=== PATIENT | female | born 1945 | race Caucasian/White ===

== ENCOUNTER → 2018-01-19 | Outpatient (CLI) | payer MEDICARE | END | disposition home or self-care (01) | LOC: RAD 12:07 | PROVIDERS: ATTEND Family Medicine | DX: M51.34 Other intervertebral disc degeneration, thoracic region (principal); M48.04 Spinal stenosis, thoracic region; J94.8 Other specified pleural conditions | CPT/HCPCS: 71046; 72072 ==

== ENCOUNTER → 2018-07-16 | Outpatient (CLI) | payer MEDICARE ==
[2018-07-16 08:22] LABS: BASOPHILS # (AUTO) 0.03 x10^3/uL (0-0.1); BASOPHILS % (AUTO) 1 % (0-1); EOSINOPHILS # (AUTO) 0.21 x10^3/uL (0-0.4); EOSINOPHILS % (AUTO) 3 % (1-7); LYMPHOCYTES # (AUTO) 2.12 x10^3/uL (1-3.4); LYMPHOCYTES % (AUTO) 32 % (22-44); MD NO; MEAN CORPUSCULAR HEMOGLOBIN 28.8 pg (27.0-34.8); MEAN CORPUSCULAR VOLUME 87.5 fL (80-100); MEAN PLATELET VOLUME 10.2 fL (7.4-10.4); MONOCYTES # (AUTO) 0.52 x10^3/uL (0.2-0.8); MONOCYTES % (AUTO) 8 % (2-9); NEUTROPHILS # (AUTO) 3.81 x10^3/uL (1.8-6.8); NEUTROPHILS % (AUTO) 57 % (42-75); PLATELET COUNT 275 x10^3/uL (130-400); RED BLOOD COUNT 4.37 x10^6/uL (3.82-5.3); RED CELL DISTRIBUTION WIDTH 15.4 % (9.6-15.2)
[2018-07-16 08:27] LABS: INTERNATIONAL NORMALIZED RATIO 0.95 (0.93-1.1); PROTHROMBIN TIME 9.9 Seconds (9.6-11.5)
[2018-07-16 08:28] LABS: ALANINE AMINOTRANSFERASE 32 U/L (12-78); ALBUMIN 3.9 g/dL (3.4-5.0); ANION GAP 6 mmol/L (5-15); CHLORIDE 108 mmol/L (98-107)
[2018-07-16 08:31] LABS: ALKALINE PHOSPHATASE 62 U/L (45-117); BILIRUBIN,TOTAL 0.3 mg/dL (0.2-1.0); CREATININE 1.16 mg/dL (0.55-1.02); TOTAL PROTEIN 7.3 g/dL (6.4-8.2)
== END | disposition home or self-care (01) ==
LOC: LAB 07:52
PROVIDERS: ATTEND Internal Medicine Hematology & Oncology
DX: D68.1 Hereditary factor XI deficiency (principal); Z87.19 Personal history of other diseases of the digestive system
CPT/HCPCS: 36415; 80053; 85025; 85270; 85610; 85730

== ENCOUNTER → 2020-02-18 | Outpatient (CLI) | payer MEDICARE | END | disposition home or self-care (01) | LOC: CFH 10:38 | PROVIDERS: ATTEND Radiology Radiation Oncology | DX: Z12.31 Encounter for screening mammogram for malignant neoplasm of breast (principal) | CPT/HCPCS: 77063; 77067 ==

== ENCOUNTER → 2020-03-17 | Outpatient (CLI) | payer MEDICARE | END | disposition home or self-care (01) | LOC: CFH 07:04 | PROVIDERS: ATTEND Orthopaedic Surgery | DX: I08.0 Rheumatic disorders of both mitral and aortic valves (principal); I42.9 Cardiomyopathy, unspecified; I12.9 Hypertensive chronic kidney disease with stage 1 through stage 4 chronic kidney disease, or unspecified chronic kidney disease; N18.9 Chronic kidney disease, unspecified; E78.2 Mixed hyperlipidemia; R73.9 Hyperglycemia, unspecified | CPT/HCPCS: 71046; 93306 ==

== ENCOUNTER 2020-06-05 08:10 | Outpatient (CLI) | payer MEDICARE ==
[~2020-06-05 08:10] MED LIST: REGADENOSON 0.4 MG/5 ML SYRINGE ONE
== END 2020-06-05 23:59 | disposition home or self-care (01) ==
LOC: CFH 08:10
PROVIDERS: ATTEND Nurse Practitioner Family
DX: I25.9 Chronic ischemic heart disease, unspecified (principal); I21.19 ST elevation (STEMI) myocardial infarction involving other coronary artery of inferior wall; R06.02 Shortness of breath; I10 Essential (primary) hypertension; I42.9 Cardiomyopathy, unspecified
CPT/HCPCS: 78452; 93017; A9502; J2785

== ENCOUNTER → 2020-06-14 | Outpatient (CLI) | payer MEDICARE ==
[~2020-06-14] MED LIST changes: +CARV6.2512 PO; +DIAZ5TAB PO; +DULO30CA2 PO; +FURO-93 PO; +LEVO75TA PO; +LOSA25TA25 PO; -REGADENOSON 0.4 MG/5 ML SYRINGE ONE; +ROSU20TA2 PO; +SPIR50TA4 PO; +TOLT2CAP22 PO
[2020-06-14 11:06] LABS: ANION GAP 9 mmol/L (5-15); CALCIUM 9.2 mg/dL (8.5-10.1); CHLORIDE 103 mmol/L (98-107); CREATININE 1.49 mg/dL (0.55-1.02)
== END | disposition home or self-care (01) ==
LOC: LAB 10:38
PROVIDERS: ATTEND Nurse Practitioner Family
DX: I12.9 Hypertensive chronic kidney disease with stage 1 through stage 4 chronic kidney disease, or unspecified chronic kidney disease (principal); E78.2 Mixed hyperlipidemia; R00.2 Palpitations; I42.9 Cardiomyopathy, unspecified; R00.1 Bradycardia, unspecified; R06.02 Shortness of breath; R73.9 Hyperglycemia, unspecified; N18.9 Chronic kidney disease, unspecified
CPT/HCPCS: 36415; 80048; 83880

== ENCOUNTER → 2020-06-16 | Outpatient (CLI) | payer MEDICARE | END | disposition home or self-care (01) | LOC: CVU 06:57 | PROVIDERS: ATTEND Nurse Practitioner Family | DX: I65.23 Occlusion and stenosis of bilateral carotid arteries (principal); R09.89 Other specified symptoms and signs involving the circulatory and respiratory systems | CPT/HCPCS: 93880 ==

== ENCOUNTER 2020-07-13 14:10 | Emergency (ER) | payer MEDICARE ==
[~2020-07-13] VITALS: Ht 154.9 cm; Wt 84.2 kg
[~2020-07-13 14:10] MED LIST changes: +LOSA100T2 PO; +SPIR25TA PO
--- NOTE | 2020-07-13 14:20 | NUR ---
EKG DONE IN TRIAGE
[2020-07-13 14:51] LABS: BASOPHILS % (AUTO) 1 % (0-1); EOSINOPHILS % (AUTO) 3 % (1-7); LYMPHOCYTES % (AUTO) 17 % (22-44); MEAN CORPUSCULAR HEMOGLOBIN 25.3 pg (27.0-34.8); MEAN CORPUSCULAR HGB CONC 31.6 g/dL (32.4-35.8); MEAN PLATELET VOLUME 8.9 fL (7.4-10.4); MONOCYTES % (AUTO) 10 % (2-9); NEUTROPHILS % (AUTO) 71 % (42-75); PLATELET COUNT 459 x10^3/uL (130-400); RED BLOOD COUNT 3.27 x10^6/uL (3.82-5.3); RED CELL DISTRIBUTION WIDTH 22.2 % (9.6-15.2)
[2020-07-13 15:03] LABS: ALANINE AMINOTRANSFERASE 21 U/L (12-78); ALBUMIN 3.8 g/dL (3.4-5.0); ANION GAP 9 mmol/L (5-15); CHLORIDE 106 mmol/L (98-107); CREATININE 1.28 mg/dL (0.55-1.02)
[2020-07-13 15:05] LABS: ALKALINE PHOSPHATASE 72 U/L (45-117); BILIRUBIN,TOTAL 0.4 mg/dL (0.2-1.0); TOTAL PROTEIN 7.5 g/dL (6.4-8.2)
[2020-07-13 15:56] LABS: MD NO
--- NOTE | 2020-07-13 17:13 | NUR ---
PT TO ROOM FROM LOBBY
--- NOTE | 2020-07-13 17:16 | NUR ---
DR SALDIVAR AT BEDSIDE TO PIETER PT. CONTACT WITH PT, 74 YR OLD FEMALE HERE WITH C/O "I'M BLEEDING, THEY HAVE SCOPED ME UP AND DOWN (DR ABARCA) AROUND THE June. I HAD A CBC ON FRIDAY. THIS MORNING IT WENT DOWN (HGB). I HAVE AVMS"
--- NOTE | 2020-07-13 18:39 | NUR ---
PT SITTING UP ON GURNEY, NO ACUTE DISTRESS NOTED. SR PER MONITOR, AUTO BP AND PULSE OX. PT WITH C/O "BEING COLD" PT PROVIDED WITH MINGO PAWS WARMER. NO OTHER NEEDS EXPRESSED AT THIS TIME. WAITING FOR FURTHER DISPOSITION.
--- NOTE | 2020-07-13 18:55 | NUR ---
BS REPORT TO MARIUSZ IQBAL.
--- NOTE | 2020-07-13 18:55 | NUR ---
BEDSIDE REPORT FROM CHEPE IQBAL, PT CARE TRANSFERRED AT THIS TIME.
[2020-07-13] MEDS ORDERED: PANT40TA6 PO (19:00)
[2020-07-13] MEDS ORDERED: TOLT4CAP12 PO (19:00)
[2020-07-13] MEDS ORDERED: DOCU240C53 PO (19:00)
[2020-07-13] MEDS ORDERED: OMEP-110 PO (19:00)
[2020-07-13] MEDS ORDERED: ROSU40TA PO (19:00)
[2020-07-13] MEDS ORDERED: VERA180C2 PO (19:00)
--- NOTE | 2020-07-13 20:16 | NUR ---
PT PROVIDED MEAL PER REQUEST, CONSENT OBTAINED, PT AMBULATED TO AND FROM RESTROOM WITH A SMOOTH AND STEADY GAIT, NAD, RESTING ON GURNEY, PT IS PALE, VSS, DENIES DIZZINESS AT THIS TIME, WAITING FOR BLOOD, WCTM.
[2020-07-13 20:43] VITALS: BP 119/46
--- NOTE | 2020-07-13 20:48 | NUR ---
BLOOD STARTED, VERIFIED WITH JENNY IQBAL
[2020-07-13 21:01] VITALS: BP 138/52
[2020-07-13 21:18] VITALS: BP 132/48
--- NOTE | 2020-07-13 21:29 | NUR ---
pt resting on gurney, lung auscultation unchanged from initial exam, pt nad, denies additional needs, wctm. waiting for transfusion then dc.
[2020-07-13 21:54] VITALS: BP 125/46
[2020-07-13 22:12] VITALS: BP 132/49
--- NOTE | 2020-07-13 22:32 | NUR ---
Patient given discharge instructions and they have confirmed that they understand the instructions. Patient ambulatory with steady gait. NAD, VSS, PROVIDED INFORMATIONAL SHEET FOR BLOOD TRASNFUSIONS, RN REVIEWED WITH PT. PT DENIES ADDITIONAL NEEDS, ALL QUESTIONS ANSWERED APPROPRIATELY. NO PERSONAL BELONGINGS LEFT IN ROOM AT NE.
== END 2020-07-13 22:33 | disposition home or self-care (01) ==
LOC: ED 18:51
DX: K92.1 Melena (principal); D62 Acute posthemorrhagic anemia; K59.00 Constipation, unspecified; R19.7 Diarrhea, unspecified; I25.2 Old myocardial infarction; I10 Essential (primary) hypertension; I48.91 Unspecified atrial fibrillation
CPT/HCPCS: 36415; 36430; 80053; 82728; 83540; 83550; 85025; 86850; 86900; 86923; 93005; 99285; P9016

== ENCOUNTER 2020-08-10 14:05 | Inpatient (IN) | payer MEDICARE ==
[~2020-08-10] VITALS: Ht 147.3 cm; Wt 86.6 kg
[~2020-08-10 14:05] MED LIST changes: +DOCU240C53 PO; +OMEP-110 PO; +PANT40TA6 PO; +ROSU40TA PO; +TOLT4CAP12 PO; +VERA180C2 PO
[2020-08-10] MEDS ORDERED: PANTOPRAZOLE 40 MG IV ONE (14:58)
[2020-08-10] MEDS ORDERED: SODIUM CHLORIDE FLUSH 10ML SYR IVF ONE (15:00)
[2020-08-10] MEDS ORDERED: PANTOPRAZOLE 80 MG in SODIUM CHLORIDE 0.9% 100 ML IV SCH (15:00)
[2020-08-10] MEDS ORDERED: PANTOPRAZOLE 40 MG IV IVPush ONE (15:00)
--- NOTE | 2020-08-10 15:08 | NUR ---
PT HAS CO GI BLEED W DARK STOOL. HX OF GI BLEEDS AND TRANSFUSIONG. PT PALE IN COLOR. STATES SHE HAS BEEN SCOPED, SOURCE OF BLEEING IS UNKNOWN. DENIES BLOOD IN EMESIS. DENIES SOB, DIZZINESS. FISHER LAMPARA NET IN PLACE PIV, MEDICATED PER ORDERS.
[2020-08-10 15:46] LABS: BASOPHILS % (AUTO) 1 % (0-1); EOSINOPHILS % (AUTO) 2 % (1-7); LYMPHOCYTES % (AUTO) 17 % (22-44); MEAN CORPUSCULAR HEMOGLOBIN 27.4 pg (27.0-34.8); MEAN PLATELET VOLUME 10.3 fL (7.4-10.4); MONOCYTES % (AUTO) 7 % (2-9); NEUTROPHILS % (AUTO) 72 % (42-75); PLATELET COUNT 267 x10^3/uL (130-400); RED BLOOD COUNT 2.95 x10^6/uL (3.82-5.3); RED CELL DISTRIBUTION WIDTH 26.8 % (9.6-15.2)
[2020-08-10 15:50] LABS: ALANINE AMINOTRANSFERASE 31 U/L (12-78); ALBUMIN 3.9 g/dL (3.4-5.0); ANION GAP 8 mmol/L (5-15); CALCIUM 9.1 mg/dL (8.5-10.1); CHLORIDE 105 mmol/L (98-107); CREATININE 1.39 mg/dL (0.55-1.02)
[2020-08-10 15:52] LABS: ALKALINE PHOSPHATASE 59 U/L (45-117); BILIRUBIN,TOTAL 0.2 mg/dL (0.2-1.0); TOTAL PROTEIN 7.3 g/dL (6.4-8.2)
[2020-08-10 16:15] LABS: INTERNATIONAL NORMALIZED RATIO 0.94 (0.93-1.1)
--- NOTE | 2020-08-10 16:36 | NUR ---
PT RESTING, VSS.
--- NOTE | 2020-08-10 16:59 | NUR ---
ASSISTED PT TO BATHROOM. STEADY GATE.
[2020-08-10 17:03] LABS: MD MORPH REVIEW ONLY
[2020-08-10 17:04] LABS: ANISOCYTOSIS 2+; HYPOCHROMIA 1+; MICROCYTOSIS 1+; POLYCHROMASIA 1+
[2020-08-10 17:05] LABS: <PLATELET ESTIMATE> ADEQUATE; LARGE PLATELETS 1+; OVALOCYTES 1+
--- NOTE | 2020-08-10 17:49 | NUR ---
MD REYNOLDS AT BEDSIDE DISCUSSING POC
[2020-08-10] MEDS ORDERED: DIAZEPAM 5 MG TABLET PO ONE (18:00)
[2020-08-10] MEDS ORDERED: DIAZEPAM 5 MG TABLET ONE (18:03)
[2020-08-10] MEDS ORDERED: SODIUM CHLORIDE FLUSH 10ML SYR IVF PRN (18:30)
[2020-08-10] MEDS ORDERED: [UNRECOGNIZED DRUG - REMARK] MC SCH (18:30)
[2020-08-10 18:33] VITALS: BP 115/39
--- NOTE | 2020-08-10 18:35 | NUR ---
BLOOD STARTED. PT TOLERATING WELL
[2020-08-10 18:48] VITALS: BP 140/42
--- NOTE | 2020-08-10 18:49 | NUR ---
report to olga
[2020-08-10] MEDS ORDERED: hydrALAzine 20 MG/ML, 1ML IVPush PRN (19:00)
[2020-08-10] MEDS ORDERED: ONDANSETRON ODT 4 MG PO PRN (19:00)
[2020-08-10] MEDS ORDERED: PROMETHAZINE 25 MG/ML, 1ML IM PRN (19:00)
[2020-08-10] MEDS ORDERED: DOCUSATE 100 MG CAPSULE PO PRN (19:00)
[2020-08-10] MEDS ORDERED: ACETAMINOPHEN 325 MG TABLET PO PRN (19:00)
[2020-08-10] MEDS ORDERED: ONDANSETRON 2MG/ML, 2ML IVPush PRN (19:00)
[2020-08-10] MEDS ORDERED: OCCUVITE (19:02)
[2020-08-10] MEDS ORDERED: [UNRECOGNIZED DRUG - OTHER] (19:02)
[2020-08-10] MEDS ORDERED: multivitamin (19:02)
[2020-08-10] MEDS ORDERED: vit b6 (19:02)
--- NOTE | 2020-08-10 19:03 | NUR ---
REPORT FROM FARIDA CORDOVA. FIRST CONTACT WITH PT. PT SPEAKS VERY FULL SENTENCES, VSS, HR NSR, NO ECTOPY, BLOOD TX WITHOUT RXN. WAITING FOR MED/SURG BED TELE. MED REC UPDATED.
[2020-08-10 19:12] LABS: FREE T4 (FREE THYROXINE) 0.95 ng/dL (0.76-1.46)
--- NOTE | 2020-08-10 19:33 | NUR ---
PER HOSPITALIST ORDER OK TO EAT REGULAR DIET. TUNA SANDWHICH AND CHIPS FROM CAFE.
[2020-08-10 19:50] VITALS: BP 151/60
--- NOTE | 2020-08-10 19:57 | NUR ---
BLOOD TX FINISHED, VSS. PT EATING MEAL WILL BE NPO AFTER MIDNIGHT FOR CAPSULE ENDO. PT HAS HAD 4 ENDO AND PUSH ENDO, CAPSULE ENDO WITH PAST FEW MONTHS. SHE REPORTS THEY HAVENT FOUND ANYTHING. VSS. NO TX RXN.
--- NOTE | 2020-08-10 21:39 | NUR ---
PT ATE 100% OF HER SANDWHICH, CHIPS X3 CUPS WATER. VSS. WAITING FOR TELE OVERFLOW BED. WILL BE NPO AFTER MIDNIGHT.
--- NOTE | 2020-08-10 23:16 | NUR ---
PT UP AMBULATORY WALKS TO BATHROOM, STEADY GAIT. VSS. WAITING FOR TRANSPORT TO TELE, ALL BELONGINGS AND TRANSPORT MONITOR ON BED.
[2020-08-11 00:21] VITALS: BP 103/68
[2020-08-11] MEDS: ATORVASTATIN 80 MG TABLET PO SCH ×2 (00:43→20:30)
[2020-08-11] MEDS: DIAZEPAM 5 MG TABLET PO SCH ×3 (00:43→20:29)
[2020-08-11] MEDS: D5%-0.45% NACL 1,000 ML IV SCH ×2 (00:58→11:55)
[2020-08-11] MEDS: PANTOPRAZOLE 80 MG in SODIUM CHLORIDE 0.9% 100 ML IV SCH ×2 (02:41→11:55)
[2020-08-11 06:11] LABS: CHLORIDE 108 mmol/L (98-107)
[2020-08-11 06:26] LABS: ALANINE AMINOTRANSFERASE 27 U/L (12-78); ALBUMIN 3.4 g/dL (3.4-5.0); ALKALINE PHOSPHATASE 58 U/L (45-117); ANION GAP 7 mmol/L (5-15); BILIRUBIN,TOTAL 0.4 mg/dL (0.2-1.0); CALCIUM 8.6 mg/dL (8.5-10.1); CHOLESTEROL, TOTAL 172 mg/dL (140-239); CREATININE 1.24 mg/dL (0.55-1.02); HDL CHOL % 33 % (28-40); HDL CHOLESTEROL (DIRECT) 57 mg/dL (40-60); LDL CHOLESTEROL,CALCULATED 88 mg/dL (54-169); LDL/HDL RATIO 1.5 (0.5-3.0); TOTAL PROTEIN 6.4 g/dL (6.4-8.2); TRIGLYCERIDES 135 mg/dL (50-200); VLDL CHOLESTEROL 27 mg/dL (0-25)
[2020-08-11 07:18] VITALS: BP 153/82
[2020-08-11] MEDS ORDERED: PANTOPRAZOLE 40MG TABLET PO SCH (07:30)
[2020-08-11] MEDS: FERROUS GLUCONATE 324 MG TABLET PO SCH ×3 (08:00→17:26)
[2020-08-11] MEDS: DULOXETINE 30 MG CAPSULE.DR PO SCH (09:00)
[2020-08-11] MEDS ORDERED: VERAPAMIL 180 MG CAP. ER PO SCH ×2 (09:00→17:00)
[2020-08-11] MEDS: LEVOTHYROXINE 75 MCG TABLET PO SCH (09:00)
[2020-08-11] MEDS: TOLTERODINE LA 4MG CAP.ER.24H PO SCH (09:00)
[2020-08-11] MEDS ORDERED: CHLORHEXIDINE 15 ML UDC MM STA (13:48)
[2020-08-11 14:03] VITALS: BP 149/78
[2020-08-11] MEDS ORDERED: PANTOPRAZOLE 80 MG in SODIUM CHLORIDE 0.9% 100 ML IV SCH (15:00)
[2020-08-11] MEDS ORDERED: FENTANYL PF 100 MCG/2ML ONE (15:01)
[2020-08-11] MEDS ORDERED: PROPOFOL 50 ML ONE (15:01)
[2020-08-11] MEDS ORDERED: ACETAMINOPHEN 325 MG TABLET PO PRN (16:00)
[2020-08-11] MEDS ORDERED: HYDROmorphone 1 MG/ML, 1ML INJ IVPush PRN (16:00)
[2020-08-11] MEDS ORDERED: FENTANYL PF 100 MCG/2ML IV PRN (16:00)
[2020-08-11] MEDS ORDERED: METHOCARBAMOL 1,000 MG in DEXTROSE 5% 100 ML IV PRN (16:00)
[2020-08-11] MEDS ORDERED: OXYcodone 5 MG/5 ML ORAL.SOL UDC PO PRN (16:00)
[2020-08-11] MEDS ORDERED: ONDANSETRON 2MG/ML, 2ML IVPush PRN (16:00)
[2020-08-11 19:40] VITALS: BP 184/76
[2020-08-11] MEDS: PANTOPRAZOLE 40MG TABLET PO SCH (20:30)
[2020-08-12 00:28] VITALS: BP 143/66
[2020-08-12 05:47] LABS: ANION GAP 5 mmol/L (5-15); CALCIUM 8.8 mg/dL (8.5-10.1); CHLORIDE 111 mmol/L (98-107)
[2020-08-12 05:50] LABS: BASOPHILS % (AUTO) 1 % (0-1); CREATININE 1.18 mg/dL (0.55-1.02); EOSINOPHILS % (AUTO) 1 % (1-7); LYMPHOCYTES % (AUTO) 8 % (22-44); MEAN CORPUSCULAR HEMOGLOBIN 27.9 pg (27.0-34.8); MEAN CORPUSCULAR HGB CONC 32.2 g/dL (32.4-35.8); MEAN PLATELET VOLUME 10.3 fL (7.4-10.4); MONOCYTES % (AUTO) 5 % (2-9); NEUTROPHILS % (AUTO) 85 % (42-75); PLATELET COUNT 218 x10^3/uL (130-400); RED BLOOD COUNT 3.31 x10^6/uL (3.82-5.3); RED CELL DISTRIBUTION WIDTH 23.8 % (9.6-15.2)
[2020-08-12 05:57] LABS: MD NO
[2020-08-12] MEDS: LEVOTHYROXINE 75 MCG TABLET PO SCH (06:15)
[2020-08-12] MEDS: FERROUS GLUCONATE 324 MG TABLET PO SCH (08:00)
[2020-08-12] MEDS: TOLTERODINE LA 4MG CAP.ER.24H PO SCH (08:06)
[2020-08-12] MEDS: DULOXETINE 30 MG CAPSULE.DR PO SCH (08:06)
[2020-08-12] MEDS: PANTOPRAZOLE 40MG TABLET PO SCH (08:06)
[2020-08-12 08:39] VITALS: BP_SYST 121; BP_SYST 156; BP_DIAS 75; BP_DIAS 84
[2020-08-12] MEDS ORDERED: VERAPAMIL 180 MG CAP. ER PO SCH (09:00)
[2020-08-12] MEDS: DIAZEPAM 5 MG TABLET PO SCH (09:45)
== END 2020-08-12 11:10 | disposition home or self-care (01) | DRG 378 ==
LOC: ED 17:31 → EDIP 18:15 → 5SO 08-11 00:12 → DCLOUNGE 08-12 10:59
PROVIDERS: ADMIT Internal Medicine; ATTEND Internal Medicine
PROC: 30233N1 Transfusion of Nonautologous Red Blood Cells into Peripheral Vein, Percutaneous Approach (ICD-10-PCS; principal; 2020-08-10)
PROC: 0DJ08ZZ Inspection of Upper Intestinal Tract, Via Natural or Artificial Opening Endoscopic (ICD-10-PCS; 2020-08-11)
DX: K92.2 Gastrointestinal hemorrhage, unspecified (principal); I42.1 Obstructive hypertrophic cardiomyopathy; Z20.828 Contact with and (suspected) exposure to other viral communicable diseases; D50.9 Iron deficiency anemia, unspecified; D72.829 Elevated white blood cell count, unspecified; E03.9 Hypothyroidism, unspecified; E78.5 Hyperlipidemia, unspecified; J44.9 Chronic obstructive pulmonary disease, unspecified; I10 Essential (primary) hypertension; I25.2 Old myocardial infarction; Z85.3 Personal history of malignant neoplasm of breast; Z85.43 Personal history of malignant neoplasm of ovary; Z87.19 Personal history of other diseases of the digestive system; Z87.891 Personal history of nicotine dependence; Z90.710 Acquired absence of both cervix and uterus; Z90.49 Acquired absence of other specified parts of digestive tract; Z88.8 Allergy status to other drugs, medicaments and biological substances; Z88.5 Allergy status to narcotic agent; Z87.11 Personal history of peptic ulcer disease; Z79.899 Other long term (current) drug therapy; Z79.01 Long term (current) use of anticoagulants; Z79.891 Long term (current) use of opiate analgesic
CPT/HCPCS: 36415; 80048; 80053; 80061; 83036; 83690; 83735; 84439; 84443; 85014; 85018; 85025; 85610; 85730; 86850; 86900; 86923; 87635; 96374; 99291; G0378; J2704; J3010; C9113; P9016

== ENCOUNTER → 2020-08-24 | Outpatient (CLI) | payer MEDICARE ==
[~2020-08-24] MED LIST changes: +LOSA100T14 PO; +MULT-658 PO; +OCCUVITE; +PYRI100T9 PO; +SENN1TAB67 PO; +SPIR25TA5 PO; +[UNRECOGNIZED DRUG - OTHER]; +multivitamin; +vit b6
[2020-08-24 11:04] LABS: BASOPHILS % (AUTO) 1 % (0-1); EOSINOPHILS % (AUTO) 3 % (1-7); LYMPHOCYTES % (AUTO) 17 % (22-44); MEAN CORPUSCULAR HEMOGLOBIN 28.4 pg (27.0-34.8); MEAN PLATELET VOLUME 9.4 fL (7.4-10.4); MONOCYTES % (AUTO) 7 % (2-9); NEUTROPHILS % (AUTO) 72 % (42-75); PLATELET COUNT 408 x10^3/uL (130-400); RED BLOOD COUNT 3.75 x10^6/uL (3.82-5.3); RED CELL DISTRIBUTION WIDTH 22.4 % (9.6-15.2)
[2020-08-24 11:07] LABS: PROTHROMBIN TIME 10.6 Seconds (9.6-11.5)
[2020-08-24 11:09] LABS: MD NO
[2020-08-24 11:14] LABS: ALANINE AMINOTRANSFERASE 30 U/L (12-78); ALBUMIN 4.2 g/dL (3.4-5.0); ANION GAP 5 mmol/L (5-15); CALCIUM 9.7 mg/dL (8.5-10.1); CHLORIDE 106 mmol/L (98-107); CREATININE 1.45 mg/dL (0.55-1.02)
[2020-08-24 11:16] LABS: ALKALINE PHOSPHATASE 65 U/L (45-117); BILIRUBIN,TOTAL 0.2 mg/dL (0.2-1.0); TOTAL PROTEIN 7.9 g/dL (6.4-8.2)
== END | disposition home or self-care (01) ==
LOC: STAR 09:08
PROVIDERS: ATTEND Internal Medicine Geriatric Medicine
DX: Z01.812 Encounter for preprocedural laboratory examination (principal); Z20.828 Contact with and (suspected) exposure to other viral communicable diseases; K63.3 Ulcer of intestine; R94.31 Abnormal electrocardiogram [ECG] [EKG]
CPT/HCPCS: 80053; 85025; 85610; 85730; 87635; 93005

== ENCOUNTER 2020-08-29 09:18 | Day surgery (SDC) | payer MEDICARE ==
[~2020-08-29] VITALS: Ht 147.3 cm; Wt 84.5 kg
[2020-08-29 09:44] VITALS: BP 163/82
[2020-08-29] MEDS ORDERED: CHLORHEXIDINE 15 ML UDC ONE (09:49)
[2020-08-29] MEDS ORDERED: LACTATED RINGERS 1,000 ML IV SCH (10:00)
[2020-08-29] MEDS ORDERED: CHLORHEXIDINE 15 ML UDC MM ONE (10:00)
[2020-08-29] MEDS ORDERED: FENTANYL PF 100 MCG/2ML ONE (10:04)
[2020-08-29] MEDS ORDERED: MIDAZOLAM 1 MG/ML, 2ML ONE (10:04)
[2020-08-29] MEDS ORDERED: PROPOFOL 10 MG/ML, 20ML ONE (10:10)
[2020-08-29] MEDS ORDERED: SUCCINYLCHOLINE 20 MG/ML, 10ML ONE (10:10)
[2020-08-29] MEDS ORDERED: ROCURONIUM 10 MG/ML,10ML ONE (10:10)
[2020-08-29] MEDS ORDERED: MEPERIDINE/PF 25MG/0.5ML IVPush PRN (10:30)
[2020-08-29] MEDS ORDERED: PROMETHAZINE 25 MG/ML, 1ML IVPush PRN (10:30)
[2020-08-29] MEDS ORDERED: DIAZEPAM 5 MG/ML, 2ML IVPush PRN (10:30)
[2020-08-29] MEDS ORDERED: FENTANYL PF 100 MCG/2ML IV PRN (10:30)
[2020-08-29] MEDS ORDERED: HYDROmorphone 1 MG/ML, 1ML INJ IVPush PRN (10:30)
[2020-08-29] MEDS ORDERED: hydrALAzine 20 MG/ML, 1ML ONE (11:49)
[2020-08-29] MEDS ORDERED: hydrALAzine 20 MG/ML, 1ML IV ONE (12:00)
[2020-08-29] MEDS ORDERED: DIAZEPAM 5 MG/ML, 2ML ONE (13:14)
== END 2020-08-29 15:20 | disposition home or self-care (01) ==
LOC: OUT 09:18
PROVIDERS: ATTEND Internal Medicine Geriatric Medicine
DX: D50.0 Iron deficiency anemia secondary to blood loss (chronic) (principal); I48.91 Unspecified atrial fibrillation; I10 Essential (primary) hypertension; I42.2 Other hypertrophic cardiomyopathy; I25.2 Old myocardial infarction; D68.1 Hereditary factor XI deficiency; Z79.890 Hormone replacement therapy; Z79.899 Other long term (current) drug therapy; Z87.891 Personal history of nicotine dependence; Z88.5 Allergy status to narcotic agent; Z88.8 Allergy status to other drugs, medicaments and biological substances; Z91.041 Radiographic dye allergy status
CPT/HCPCS: 44360; 93005; J0330; J0360; J2250; J2704; J3010; J3360; J7120

== ENCOUNTER → 2020-10-11 | Outpatient (CLI) | payer MEDICARE ==
[2020-10-11 15:59] LABS: BASOPHILS % (AUTO) 1 % (0-1); EOSINOPHILS % (AUTO) 3 % (1-7); LYMPHOCYTES % (AUTO) 19 % (22-44); MEAN CORPUSCULAR HEMOGLOBIN 27.1 pg (27.0-34.8); MEAN CORPUSCULAR HGB CONC 32.5 g/dL (32.4-35.8); MEAN PLATELET VOLUME 9.6 fL (7.4-10.4); MONOCYTES % (AUTO) 10 % (2-9); NEUTROPHILS % (AUTO) 67 % (42-75); PLATELET COUNT 376 x10^3/uL (130-400); RED BLOOD COUNT 3.53 x10^6/uL (3.82-5.3); RED CELL DISTRIBUTION WIDTH 17.5 % (9.6-15.2)
[2020-10-11 16:04] LABS: MD NO
== END | disposition home or self-care (01) ==
LOC: LAB 15:31
PROVIDERS: ATTEND Nurse Practitioner Family
DX: I42.2 Other hypertrophic cardiomyopathy (principal); K92.2 Gastrointestinal hemorrhage, unspecified
CPT/HCPCS: 36415; 85025

== ENCOUNTER 2020-10-22 14:13 | Inpatient (IN) | payer MEDICARE ==
[~2020-10-22] VITALS: Ht 147.3 cm; Wt 89.0 kg
--- NOTE | 2020-10-22 14:31 | NUR ---
vashti Lange: [phone]
--- NOTE | 2020-10-22 14:33 | NUR ---
PATIENT WHEELED BACK FROM TRIAGE WITH CHIEF C/O PADILLA. PATIENT REPORTS SHE HAD PROCEDURE AT [place] AND ON THE WAY BACK TO [place] FRIDAY, AFTER HITTING 1000 FEET ELEVATION PATIENT STARTED EXPERIENCING PADILLA, AND AFTER GETTING HOME SHE WAS HAVING SOB, HOME O2 ON RA WAS 50% PER PATIENT. KONARD GONZALEZ, O2 NOW IS 93% ON RA.
[2020-10-22] MEDS ORDERED: SODIUM CHLORIDE FLUSH 10ML SYR IVF ONE (15:00)
--- NOTE | 2020-10-22 15:01 | NUR ---
X-RAY AT BEDSIDE.
[2020-10-22 15:08] LABS: BASOPHILS % (AUTO) 1 % (0-1); EOSINOPHILS % (AUTO) 3 % (1-7); LYMPHOCYTES % (AUTO) 20 % (22-44); MEAN CORPUSCULAR HEMOGLOBIN 26.9 pg (27.0-34.8); MEAN CORPUSCULAR HGB CONC 32.7 g/dL (32.4-35.8); MEAN PLATELET VOLUME 9.8 fL (7.4-10.4); MONOCYTES % (AUTO) 10 % (2-9); NEUTROPHILS % (AUTO) 67 % (42-75); PLATELET COUNT 320 x10^3/uL (130-400); RED BLOOD COUNT 2.75 x10^6/uL (3.82-5.3); RED CELL DISTRIBUTION WIDTH 17.4 % (9.6-15.2)
[2020-10-22 15:16] LABS: ALANINE AMINOTRANSFERASE 21 U/L (12-78); ALBUMIN 3.8 g/dL (3.4-5.0); ANION GAP 9 mmol/L (5-15); CHLORIDE 108 mmol/L (98-107); CREATININE 1.13 mg/dL (0.55-1.02)
[2020-10-22 15:18] LABS: MD NO
[2020-10-22 15:21] LABS: ALKALINE PHOSPHATASE 72 U/L (45-117); BILIRUBIN,TOTAL 0.3 mg/dL (0.2-1.0); TOTAL PROTEIN 6.8 g/dL (6.4-8.2)
[2020-10-22] MEDS ORDERED: ASPIRIN 81 MG TABLET CHEW ONE (15:41)
[2020-10-22] MEDS: ASPIRIN 81 MG TABLET CHEW PO ONE ×2 (15:46→16:00)
--- NOTE | 2020-10-22 16:03 | NUR ---
ERMD AT BEDSIDE FOR EVALUATION.
--- NOTE | 2020-10-22 16:45 | NUR ---
ATTEMPT TO CALL REPORT FOR TRANSFER OF PATIENT CARE.
--- NOTE | 2020-10-22 16:49 | NUR ---
SPOKE WITH BLOOD BANK, BLOOD IS STILL BEING PROCESSED, BLOOD IS NOT READY YET.
--- NOTE | 2020-10-22 17:00 | NUR ---
REPORT GIVEN TO FARIDA YUNG FOR TRANSFER OF PATIENT CARE. FLOOR RN AWARE THAT BLOOD TO BE STARTED ON THE FLOOR, DUE TO BLOOD NOT READY YET.
--- NOTE | 2020-10-22 17:24 | NUR ---
PATIENT TRANSFERRED IN STABLE CONDITION VIA GURNEY TO CARDIAC TELEMETRY FLOOR WITH RECORDS ANALYSIS MANAGER. BLOOD CONSENT SENT UP WITH PATIENT, ALONG WITH ALL OF PATIENT BELONGINGS.
[2020-10-22 17:30] VITALS: BP 135/60
[2020-10-22] MEDS ORDERED: TRAZODONE 50MG TABLET PO PRN (18:00)
[2020-10-22] MEDS ORDERED: ONDANSETRON 2MG/ML, 2ML IVPush PRN (18:00)
[2020-10-22] MEDS ORDERED: MELATONIN 5 MG TABLET PO PRN (18:00)
[2020-10-22] MEDS ORDERED: ONDANSETRON ODT 4 MG PO PRN (18:00)
[2020-10-22] MEDS ORDERED: ACETAMINOPHEN 325 MG TABLET PO PRN (18:00)
[2020-10-22] MEDS ORDERED: NICOTINE GUM 2 MG BC PRN (18:00)
[2020-10-22 18:26] VITALS: BP 129/55
[2020-10-22] MEDS ORDERED: PANTOPRAZOLE 80 MG in SODIUM CHLORIDE 0.9% 50 ML IV ONE (18:30)
[2020-10-22] MEDS ORDERED: DIAZEPAM 5 MG/ML, 2ML IV PRN (18:30)
[2020-10-22 18:42] VITALS: BP 134/84
[2020-10-22 18:51] VITALS: BP 134/84
[2020-10-22] MEDS ORDERED: ATORVASTATIN 80 MG TABLET PO SCH (21:00)
[2020-10-22 22:00] VITALS: BP 151/68
[2020-10-22] MEDS: PANTOPRAZOLE 80 MG in SODIUM CHLORIDE 0.9% 100 ML IV SCH (22:39)
[2020-10-23 02:46] VITALS: BP 137/72
[2020-10-23] MEDS: PANTOPRAZOLE 80 MG in SODIUM CHLORIDE 0.9% 100 ML IV SCH ×2 (05:00→14:23)
[2020-10-23] MEDS ORDERED: LEVOTHYROXINE 75 MCG TABLET PO SCH (06:00)
[2020-10-23 06:40] LABS: % IRON SATURATION 81 % (20-55); ANION GAP 7 mmol/L (5-15); CALCIUM 9.1 mg/dL (8.5-10.1); CHLORIDE 107 mmol/L (98-107); CREATININE 1.29 mg/dL (0.55-1.02); IRON LEVEL 316 mcg/dL (50-170); TOTAL IRON BINDING CAPACITY 390 mcg/dL (250-450)
[2020-10-23 07:08] VITALS: BP 141/65
[2020-10-23] MEDS ORDERED: PYRIDOXINE (VITAMIN B6) 100 MG TAB PO SCH (09:00)
[2020-10-23] MEDS ORDERED: SPIRONOLACTONE 25 MG TABLET PO SCH (09:00)
[2020-10-23] MEDS ORDERED: MULTIVITAMIN 1 TABLET PO SCH (09:00)
[2020-10-23] MEDS ORDERED: VERAPAMIL 180 MG CAP. ER PO SCH (09:00)
[2020-10-23] MEDS ORDERED: TOLTERODINE LA 4MG CAP.ER.24H PO SCH (09:00)
[2020-10-23] MEDS ORDERED: FUROSEMIDE 20 MG TABLET PO SCH (09:00)
[2020-10-23] MEDS ORDERED: DULOXETINE 30 MG CAPSULE.DR PO SCH (09:00)
[2020-10-23 12:18] VITALS: BP 106/68
[2020-10-23 19:35] VITALS: BP 112/66
== END 2020-10-23 19:43 | disposition home or self-care (01) | DRG 811 ==
LOC: SUATTDRO 16:14 → ED 16:38 → EDIP 17:05 → 5SO 17:27
PROVIDERS: ADMIT Internal Medicine; ATTEND Internal Medicine
PROC: 30233N1 Transfusion of Nonautologous Red Blood Cells into Peripheral Vein, Percutaneous Approach (ICD-10-PCS; principal; 2020-10-22)
DX: D64.9 Anemia, unspecified (principal); J96.01 Acute respiratory failure with hypoxia; I21.A1 Myocardial infarction type 2; F13.20 Sedative, hypnotic or anxiolytic dependence, uncomplicated; I42.2 Other hypertrophic cardiomyopathy; Z68.42 Body mass index [BMI] 45.0-49.9, adult; I42.1 Obstructive hypertrophic cardiomyopathy; F17.200 Nicotine dependence, unspecified, uncomplicated; I12.9 Hypertensive chronic kidney disease with stage 1 through stage 4 chronic kidney disease, or unspecified chronic kidney disease; I48.0 Paroxysmal atrial fibrillation; N18.30 Chronic kidney disease, stage 3 unspecified; R73.03 Prediabetes; Z80.3 Family history of malignant neoplasm of breast; Z82.3 Family history of stroke; Z85.3 Personal history of malignant neoplasm of breast; Z85.43 Personal history of malignant neoplasm of ovary; Z87.11 Personal history of peptic ulcer disease; Z90.710 Acquired absence of both cervix and uterus; Z92.3 Personal history of irradiation
CPT/HCPCS: 36415; 71045; 80048; 80053; 83540; 83550; 83880; 84484; 85018; 85025; 85379; 86850; 86900; 86923; 93005; 93306; 99291; G0378; C9113; P9016

== ENCOUNTER 2020-10-30 11:55 | Outpatient (CLI) | payer MEDICARE ==
[2020-10-30 12:17] LABS: BASOPHILS % (AUTO) 1 % (0-1); EOSINOPHILS % (AUTO) 2 % (1-7); LYMPHOCYTES % (AUTO) 18 % (22-44); MEAN CORPUSCULAR HGB CONC 32.6 g/dL (32.4-35.8); MONOCYTES % (AUTO) 7 % (2-9); NEUTROPHILS % (AUTO) 72 % (42-75); PLATELET COUNT 409 x10^3/uL (130-400); RED BLOOD COUNT 3.51 x10^6/uL (3.82-5.3); RED CELL DISTRIBUTION WIDTH 18.2 % (9.6-15.2)
[2020-10-30 12:29] LABS: MD NO
== END 2020-10-30 23:59 | disposition home or self-care (01) ==
LOC: LAB 11:55
PROVIDERS: ATTEND Internal Medicine
DX: I42.2 Other hypertrophic cardiomyopathy (principal); K92.2 Gastrointestinal hemorrhage, unspecified
CPT/HCPCS: 36415; 85025

== ENCOUNTER → 2020-11-06 | Outpatient (CLI) | payer MEDICARE ==
[2020-11-06 08:19] LABS: BASOPHILS % (AUTO) 1 % (0-1); EOSINOPHILS % (AUTO) 3 % (1-7); LYMPHOCYTES % (AUTO) 22 % (22-44); MEAN CORPUSCULAR HEMOGLOBIN 25.3 pg (27.0-34.8); MEAN PLATELET VOLUME 9.3 fL (7.4-10.4); MONOCYTES % (AUTO) 8 % (2-9); NEUTROPHILS % (AUTO) 66 % (42-75); PLATELET COUNT 351 x10^3/uL (130-400); RED CELL DISTRIBUTION WIDTH 18.8 % (9.6-15.2)
[2020-11-06 08:25] LABS: MD NO
== END | disposition home or self-care (01) ==
LOC: LAB 08:00
PROVIDERS: ATTEND Internal Medicine
DX: I42.2 Other hypertrophic cardiomyopathy (principal); K92.2 Gastrointestinal hemorrhage, unspecified
CPT/HCPCS: 36415; 85025

== ENCOUNTER 2020-11-16 17:06 | Inpatient (IN) | payer MEDICARE ==
[~2020-11-16] VITALS: Ht 149.9 cm; Wt 91.0 kg
--- NOTE | 2020-11-16 17:35 | NUR ---
pt cc endoscopy yesterday where they found "a fair amount of blood in the jejunum" pt supposed to be seen tomorrow for procedure. pt is a well known, friendly female who has had a complex history of gi bleeds. pt reports black stools for and extended period of time (since june). pt has had multiple blood transfusions in the past. No blood thinners. Pt recently at [facility] where she had clips placed 10/20/20 but blood levels dropped and pt was seen here two days later. denies pain at this time. pt resting on gurney, nad, bed in lowest, rails engaged, call light on lap, pt provided warm blankets for comfort. ping arvizu md at for eval and poc.
[2020-11-16] MEDS ORDERED: ALBU90AE2 INH (18:00)
[2020-11-16] MEDS ORDERED: LOSA25TA25 PO (18:00)
[2020-11-16] MEDS ORDERED: [UNRECOGNIZED DRUG - REMARK] NAS (18:00)
[2020-11-16] MEDS ORDERED: HYDROCORTISONE CREAM (18:00)
[2020-11-16] MEDS ORDERED: TRAN650T3 PO (18:00)
[2020-11-16] MEDS ORDERED: LUTE1CAP PO (18:00)
[2020-11-16] MEDS ORDERED: POLY17PO5 PO (18:00)
[2020-11-16 18:02] LABS: BASOPHILS % (AUTO) 1 % (0-1); EOSINOPHILS % (AUTO) 2 % (1-7); LYMPHOCYTES % (AUTO) 16 % (22-44); MEAN CORPUSCULAR HEMOGLOBIN 28.7 pg (27.0-34.8); MEAN CORPUSCULAR HGB CONC 33.9 g/dL (32.4-35.8); MEAN PLATELET VOLUME 9.5 fL (7.4-10.4); MONOCYTES % (AUTO) 11 % (2-9); NEUTROPHILS % (AUTO) 69 % (42-75); PLATELET COUNT 316 x10^3/uL (130-400); RED BLOOD COUNT 3.47 x10^6/uL (3.82-5.3); RED CELL DISTRIBUTION WIDTH 19.4 % (9.6-15.2)
[2020-11-16 18:13] LABS: MD NO
[2020-11-16 18:26] LABS: ALBUMIN 3.6 g/dL (3.4-5.0); ANION GAP 9 mmol/L (5-15); CALCIUM 8.2 mg/dL (8.5-10.1); CHLORIDE 109 mmol/L (98-107); CREATININE 1.15 mg/dL (0.55-1.02)
[2020-11-16] MEDS ORDERED: SODIUM CHLORIDE FLUSH 10ML SYR IVF ONE (18:30)
--- NOTE | 2020-11-16 18:56 | NUR ---
report to sandoval duffy, pt care transferred at this time.
[2020-11-16] MEDS ORDERED: TRANEXAMIC ACID 650 MG TAB PO PRN (19:30)
[2020-11-16] MEDS ORDERED: SODIUM CHLORIDE FLUSH 10ML SYR IVF PRN (19:30)
[2020-11-16] MEDS ORDERED: ACETAMINOPHEN 325 MG TABLET PO PRN (19:30)
[2020-11-16] MEDS ORDERED: GOLYTELY 4,000ML ORAL.SOL PO ONE (19:30)
[2020-11-16] MEDS ORDERED: ONDANSETRON ODT 4 MG PO PRN (19:30)
[2020-11-16 19:50] LABS: INTERNATIONAL NORMALIZED RATIO 0.99 (0.93-1.1); PROTHROMBIN TIME 10.6 Seconds (9.6-11.5)
--- NOTE | 2020-11-16 20:04 | NUR ---
PT CALM IN BED. DENIES PAIN. GOLYTELY GIVEN TO PATIENT AND STARTED. PT TOLERATED WELL. REPORT GIVEN HOLLY.
[2020-11-16 20:15] VITALS: BP 146/73
[2020-11-16] MEDS: LOSARTAN 50MG TABLET PO SCH (21:57)
[2020-11-16] MEDS: DIAZEPAM 10 MG TABLET PO SCH (21:57)
[2020-11-16] MEDS: ATORVASTATIN 80 MG TABLET PO SCH (21:57)
[2020-11-16] MEDS: ESOMEPRAZOLE 40 MG IV IVPush SCH (22:51)
[2020-11-17] VITALS: BP 148/76
[2020-11-17] MEDS: LEVOTHYROXINE 75 MCG TABLET PO SCH (05:52)
[2020-11-17 06:29] LABS: BASOPHILS % (AUTO) 1 % (0-1); EOSINOPHILS % (AUTO) 4 % (1-7); LYMPHOCYTES % (AUTO) 21 % (22-44); MEAN CORPUSCULAR HGB CONC 33.1 g/dL (32.4-35.8); MEAN PLATELET VOLUME 9.3 fL (7.4-10.4); MONOCYTES % (AUTO) 9 % (2-9); NEUTROPHILS % (AUTO) 65 % (42-75); PLATELET COUNT 279 x10^3/uL (130-400); RED BLOOD COUNT 3.25 x10^6/uL (3.82-5.3); RED CELL DISTRIBUTION WIDTH 21.5 % (9.6-15.2)
[2020-11-17 06:31] LABS: MD NO
[2020-11-17 06:41] LABS: ANION GAP 8 mmol/L (5-15); CALCIUM 8.1 mg/dL (8.5-10.1); CHLORIDE 111 mmol/L (98-107)
[2020-11-17 06:42] LABS: CREATININE 0.96 mg/dL (0.55-1.02)
[2020-11-17 06:57] VITALS: BP 124/64
[2020-11-17] MEDS ORDERED: ALBUTEROL HFA 90 MCG/SPRAY INH PRN (07:00)
[2020-11-17] MEDS: DULOXETINE 30 MG CAPSULE.DR PO SCH (08:33)
[2020-11-17] MEDS: LOSARTAN 50MG TABLET PO SCH ×2 (08:33→20:59)
[2020-11-17] MEDS: DIAZEPAM 10 MG TABLET PO SCH ×2 (08:33→21:00)
[2020-11-17] MEDS: TOLTERODINE LA 4MG CAP.ER.24H PO SCH ×2 (08:34→08:43)
[2020-11-17] MEDS: SPIRONOLACTONE 25 MG TABLET PO SCH (08:34)
[2020-11-17] MEDS: ESOMEPRAZOLE 40 MG IV IVPush SCH ×2 (08:34→20:59)
[2020-11-17] MEDS: FUROSEMIDE 20 MG TABLET PO SCH (08:34)
[2020-11-17] MEDS: ZEAXANTHIN HOMEMEDPO SCH (08:34)
[2020-11-17] MEDS: LUTEIN HOMEMEDPO SCH (08:34)
[2020-11-17] MEDS: VERAPAMIL 180 MG CAP. ER PO SCH (08:34)
[2020-11-17] MEDS: PYRIDOXINE (VITAMIN B6) 100 MG TAB PO SCH (08:35)
[2020-11-17] MEDS ORDERED: ALBUTEROL HFA 90 MCG/SPRAY INH SCH (09:00)
[2020-11-17] MEDS ORDERED: OMEPRAZOLE 20 MG CAPSULE.DR PO SCH (09:00)
[2020-11-17 13:41] VITALS: BP 114/67
[2020-11-17] MEDS ORDERED: LABETALOL 5MG/ML, 20ML IV PRN (15:00)
[2020-11-17] MEDS ORDERED: EPHEDRINE 50 MG/ML, 1ML IVPush PRN (15:00)
[2020-11-17] MEDS ORDERED: PROMETHAZINE 25 MG/ML, 1ML IVPush PRN (15:00)
[2020-11-17] MEDS ORDERED: ONDANSETRON 2MG/ML, 2ML IVPush PRN (15:00)
[2020-11-17] MEDS ORDERED: FENTANYL PF 100 MCG/2ML IV PRN (15:00)
[2020-11-17] MEDS ORDERED: HYDROmorphone 1 MG/ML, 1ML INJ IVPush PRN (15:00)
[2020-11-17] MEDS ORDERED: hydrALAzine 20 MG/ML, 1ML IV PRN (15:00)
[2020-11-17] MEDS ORDERED: MIDAZOLAM 1 MG/ML, 2ML IV PRN (15:00)
[2020-11-17] MEDS ORDERED: METHOCARBAMOL 1,000 MG in DEXTROSE 5% 100 ML IV PRN (15:00)
[2020-11-17] MEDS ORDERED: ACETAMINOPHEN 325 MG TABLET PO PRN (15:00)
[2020-11-17] MEDS ORDERED: MEPERIDINE/PF 25MG/0.5ML IVPush PRN (15:00)
[2020-11-17] MEDS ORDERED: CHLORHEXIDINE 15 ML UDC ONE (15:01)
[2020-11-17] MEDS ORDERED: MIDAZOLAM 1 MG/ML, 2ML ONE (15:01)
[2020-11-17] MEDS ORDERED: FENTANYL PF 100 MCG/2ML ONE ×2 (15:01→16:55)
[2020-11-17] MEDS ORDERED: PROPOFOL 50 ML ONE (16:16)
[2020-11-17 19:26] VITALS: BP 149/77
[2020-11-17] MEDS: ATORVASTATIN 80 MG TABLET PO SCH (20:59)
[2020-11-18 02:14] VITALS: BP 159/65
[2020-11-18] MEDS: LEVOTHYROXINE 75 MCG TABLET PO SCH (05:45)
[2020-11-18 05:49] LABS: BASOPHILS % (AUTO) 1 % (0-1); EOSINOPHILS % (AUTO) 3 % (1-7); LYMPHOCYTES % (AUTO) 17 % (22-44); MEAN CORPUSCULAR HEMOGLOBIN 28.1 pg (27.0-34.8); MEAN CORPUSCULAR HGB CONC 32.9 g/dL (32.4-35.8); MEAN PLATELET VOLUME 9.5 fL (7.4-10.4); MONOCYTES % (AUTO) 8 % (2-9); NEUTROPHILS % (AUTO) 72 % (42-75); PLATELET COUNT 266 x10^3/uL (130-400); RED BLOOD COUNT 3.29 x10^6/uL (3.82-5.3); RED CELL DISTRIBUTION WIDTH 22.9 % (9.6-15.2)
[2020-11-18 05:52] LABS: CHLORIDE 111 mmol/L (98-107)
[2020-11-18 06:03] LABS: ANION GAP 4 mmol/L (5-15); CALCIUM 8.7 mg/dL (8.5-10.1); CREATININE 1.01 mg/dL (0.55-1.02)
[2020-11-18 06:57] LABS: MD SCAN
[2020-11-18 07:24] VITALS: BP 150/61
[2020-11-18] MEDS: LUTEIN HOMEMEDPO SCH (09:00)
[2020-11-18] MEDS: ZEAXANTHIN HOMEMEDPO SCH (09:00)
[2020-11-18] MEDS: ESOMEPRAZOLE 40 MG IV IVPush SCH (09:34)
[2020-11-18] MEDS: SPIRONOLACTONE 25 MG TABLET PO SCH (09:34)
[2020-11-18] MEDS: TOLTERODINE LA 4MG CAP.ER.24H PO SCH (09:34)
[2020-11-18] MEDS: DULOXETINE 30 MG CAPSULE.DR PO SCH (09:34)
[2020-11-18] MEDS: LOSARTAN 50MG TABLET PO SCH (09:34)
[2020-11-18] MEDS: PYRIDOXINE (VITAMIN B6) 100 MG TAB PO SCH (09:35)
[2020-11-18] MEDS: FUROSEMIDE 20 MG TABLET PO SCH (09:35)
[2020-11-18] MEDS: DIAZEPAM 10 MG TABLET PO SCH (09:35)
[2020-11-18] MEDS: VERAPAMIL 180 MG CAP. ER PO SCH (09:36)
[2020-11-18 13:55] VITALS: BP 115/76
== END 2020-11-18 16:05 | disposition home health service (06) | DRG 378 ==
LOC: ED 19:05 → EDIP 19:14 → 3N 20:12 → DCLOUNGE 11-18 15:54
PROVIDERS: ADMIT Family Medicine; ATTEND Family Medicine
PROC: 0W3P8ZZ Control Bleeding in Gastrointestinal Tract, Via Natural or Artificial Opening Endoscopic (ICD-10-PCS; principal; 2020-11-17 15:00)
DX: K55.21 Angiodysplasia of colon with hemorrhage (principal); I48.20 Chronic atrial fibrillation, unspecified; I38 Endocarditis, valve unspecified; D62 Acute posthemorrhagic anemia; D68.69 Other thrombophilia; I42.1 Obstructive hypertrophic cardiomyopathy; Z68.41 Body mass index [BMI] 40.0-44.9, adult; N18.1 Chronic kidney disease, stage 1; Z20.822 Contact with and (suspected) exposure to COVID-19; E03.9 Hypothyroidism, unspecified; E66.9 Obesity, unspecified; E78.5 Hyperlipidemia, unspecified; I12.9 Hypertensive chronic kidney disease with stage 1 through stage 4 chronic kidney disease, or unspecified chronic kidney disease; I48.0 Paroxysmal atrial fibrillation; I25.2 Old myocardial infarction; Z80.9 Family history of malignant neoplasm, unspecified; Z82.49 Family history of ischemic heart disease and other diseases of the circulatory system; Z85.3 Personal history of malignant neoplasm of breast; Z85.43 Personal history of malignant neoplasm of ovary; Z87.891 Personal history of nicotine dependence; Z90.710 Acquired absence of both cervix and uterus; Z88.8 Allergy status to other drugs, medicaments and biological substances; Z88.5 Allergy status to narcotic agent
CPT/HCPCS: 36415; 80048; 82040; 85014; 85018; 85025; 85610; 85730; 86850; 86900; 87635; 93005; 96374; 99285; G0378; J2250; J2704; J3010

== ENCOUNTER 2020-11-25 12:32 | Inpatient (IN) | payer MEDICARE ==
[~2020-11-25] VITALS: Ht 149.9 cm; Wt 87.4 kg
[2020-11-25] VITALS (10 sets, daily range): BP systolic 129–162; BP diastolic 49–88
[~2020-11-25 12:32] MED LIST changes: +ALBU90AE2 INH; +HYDROCORTISONE CREAM; +LUTE1CAP PO; +POLY17PO5 PO; +TRAN650T3 PO; +[UNRECOGNIZED DRUG - REMARK] NAS
--- NOTE | 2020-11-25 12:49 | NUR ---
BIB EMS FOR SOB AND STATED ANEMIA PER PT. 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 LAB DRAW YESTERDAY 9.0 HGB. PT AXOX4 AND IN NO OBVIOUS DISTRESS. PT IN GOWN AND PLACED ON CARDIAC, NIBP, AND O2 MONITORING. MD AT BEDSIDE, CALL LIGHT IN REACH.
[2020-11-25] MEDS ORDERED: SODIUM CHLORIDE 0.9% 1,000 ML IV ONE (13:00)
[2020-11-25] MEDS ORDERED: SODIUM CHLORIDE FLUSH 10ML SYR IVF ONE (13:00)
--- NOTE | 2020-11-25 13:10 | NUR ---
IV ACCESS, LABS DRAWN
[2020-11-25 13:13] LABS: BASOPHILS % (AUTO) 0 % (0-1); EOSINOPHILS % (AUTO) 0 % (1-7); LYMPHOCYTES % (AUTO) 7 % (22-44); MEAN CORPUSCULAR HEMOGLOBIN 28.8 pg (27.0-34.8); MEAN CORPUSCULAR HGB CONC 32.2 g/dL (32.4-35.8); MEAN PLATELET VOLUME 10.4 fL (7.4-10.4); MONOCYTES % (AUTO) 5 % (2-9); NEUTROPHILS % (AUTO) 88 % (42-75); PLATELET COUNT 213 x10^3/uL (130-400); RED BLOOD COUNT 2.19 x10^6/uL (3.82-5.3); RED CELL DISTRIBUTION WIDTH 26.1 % (9.6-15.2)
[2020-11-25 13:26] LABS: ALBUMIN 3.5 g/dL (3.4-5.0); ANION GAP 6 mmol/L (5-15); CALCIUM 8.4 mg/dL (8.5-10.1); CHLORIDE 107 mmol/L (98-107); INTERNATIONAL NORMALIZED RATIO 0.98 (0.93-1.1); PROTHROMBIN TIME 10.5 Seconds (9.6-11.5)
--- NOTE | 2020-11-25 13:28 | NUR ---
REPORT FROM MAURI. PATIENT IN BED, RAILS UP.
[2020-11-25 13:30] LABS: ALANINE AMINOTRANSFERASE 31 U/L (12-78); ALKALINE PHOSPHATASE 64 U/L (45-117); BILIRUBIN,TOTAL 0.2 mg/dL (0.2-1.0); CREATININE 1.09 mg/dL (0.55-1.02); TOTAL PROTEIN 6.5 g/dL (6.4-8.2)
[2020-11-25 13:35] LABS: ANISOCYTOSIS 2+; MD MORPH REVIEW ONLY; POLYCHROMASIA 1+
[2020-11-25 13:36] LABS: <PLATELET ESTIMATE> ADEQUATE; SPHEROCYTES 1+
[2020-11-25 13:37] LABS: <PLT MORPHOLOGY> NORMAL PLT MORPH; MICROCYTOSIS 1+
[2020-11-25] MEDS ORDERED: SODIUM CHLORIDE FLUSH 10ML SYR IVF PRN (15:00)
--- NOTE | 2020-11-25 15:03 | NUR ---
PATIENT HAS MD AT BEDSIDE ADMITTING AND CONSULTING WITH PATIENT. AOX4, CALM, VSS.
[2020-11-25] MEDS ORDERED: hydrALAzine 20 MG/ML, 1ML IVPush PRN (16:00)
[2020-11-25] MEDS ORDERED: ACETAMINOPHEN 325 MG TABLET PO PRN (16:00)
[2020-11-25] MEDS ORDERED: ONDANSETRON 2MG/ML, 2ML IVPush PRN (16:00)
[2020-11-25] MEDS ORDERED: LABETALOL 5MG/ML, 20ML IVPush PRN (16:00)
[2020-11-25] MEDS ORDERED: PANTOPRAZOLE 80 MG in SODIUM CHLORIDE 0.9% 100 ML IVPB ONE (16:30)
[2020-11-25] MEDS ORDERED: POLYETHYLENE GLYCOL 17 GM PACKET PO PRN (16:30)
[2020-11-25] MEDS ORDERED: TRANEXAMIC ACID 650 MG TAB PO PRN (16:30)
[2020-11-25] MEDS ORDERED: [UNRECOGNIZED DRUG - REMARK] NAS PRN (16:30)
[2020-11-25] MEDS ORDERED: CEFTRIAXONE PMX 2GM/50ML 50 ML IVPB SCH (18:00)
[2020-11-25] MEDS: ROSUVASTATIN CALCIUM 40 MG PO SCH (21:00)
[2020-11-25] MEDS ORDERED: DIAZEPAM 5 MG TABLET PO SCH (21:00)
[2020-11-25] MEDS: DIAZEPAM 5 MG/ML, 2ML IVPush SCH (21:00)
[2020-11-25] MEDS: LOSARTAN 50MG TABLET PO SCH (21:26)
[2020-11-25] MEDS ORDERED: PANTOPRAZOLE 80 MG in SODIUM CHLORIDE 0.9% 50 ML IVPB ONE (22:30)
[2020-11-25] MEDS: LACTATED RINGERS 1,000 ML IV SCH (22:55)
[2020-11-25] MEDS: PANTOPRAZOLE 80 MG in SODIUM CHLORIDE 0.9% 100 ML IV SCH (23:07)
[2020-11-25] MEDS ORDERED: ALBUTEROL HFA 90 MCG/SPRAY INH PRN (23:30)
[2020-11-26 01:42] VITALS: BP 126/69
[2020-11-26 04:49] LABS: BASOPHILS % (AUTO) 0 % (0-1); EOSINOPHILS % (AUTO) 2 % (1-7); LYMPHOCYTES % (AUTO) 13 % (22-44); MEAN CORPUSCULAR HEMOGLOBIN 29.1 pg (27.0-34.8); MEAN CORPUSCULAR HGB CONC 33.8 g/dL (32.4-35.8); MEAN PLATELET VOLUME 10.1 fL (7.4-10.4); MONOCYTES % (AUTO) 7 % (2-9); NEUTROPHILS % (AUTO) 78 % (42-75); PLATELET COUNT 174 x10^3/uL (130-400); RED CELL DISTRIBUTION WIDTH 21.9 % (9.6-15.2)
[2020-11-26 04:55] LABS: MD NO
[2020-11-26 04:58] LABS: ANION GAP 5 mmol/L (5-15); CALCIUM 8.1 mg/dL (8.5-10.1); CHLORIDE 114 mmol/L (98-107)
[2020-11-26 04:59] LABS: CREATININE 0.82 mg/dL (0.55-1.02)
[2020-11-26] MEDS: LEVOTHYROXINE 75 MCG TABLET PO SCH (05:14)
[2020-11-26 07:31] VITALS: BP 113/59
[2020-11-26] MEDS: SENNA/DOCUSATE TABLET PO SCH (09:00)
[2020-11-26] MEDS: ZEAXANTHIN PO SCH (09:00)
[2020-11-26] MEDS: LUTEIN PO SCH (09:00)
[2020-11-26] MEDS: PANTOPRAZOLE 80 MG in SODIUM CHLORIDE 0.9% 100 ML IV SCH ×2 (09:01→20:38)
[2020-11-26] MEDS: DIAZEPAM 5 MG/ML, 2ML IVPush SCH ×2 (09:02→20:39)
[2020-11-26] MEDS: LOSARTAN 50MG TABLET PO SCH ×2 (09:08→20:18)
[2020-11-26] MEDS: MULTIVITAMIN 1 TABLET PO SCH (09:08)
[2020-11-26] MEDS: SPIRONOLACTONE 25 MG TABLET PO SCH (09:08)
[2020-11-26] MEDS: VERAPAMIL 180 MG CAP. ER PO SCH (09:09)
[2020-11-26] MEDS: DULOXETINE 30 MG CAPSULE.DR PO SCH (09:09)
[2020-11-26] MEDS: TOLTERODINE LA 4MG CAP.ER.24H PO SCH (09:09)
[2020-11-26] MEDS: PYRIDOXINE (VITAMIN B6) 100 MG TAB PO SCH (09:09)
[2020-11-26 14:27] VITALS: BP 119/57
[2020-11-26] MEDS: LACTATED RINGERS 1,000 ML IV SCH (17:58)
[2020-11-26 18:55] VITALS: BP 118/56
[2020-11-26] MEDS: ROSUVASTATIN CALCIUM 40 MG PO SCH (20:41)
[2020-11-27 02:00] VITALS: BP 117/64
[2020-11-27] MEDS: LEVOTHYROXINE 75 MCG TABLET PO SCH (05:27)
[2020-11-27 07:09] VITALS: BP 132/71
[2020-11-27] MEDS ORDERED: PANTOPRAZOLE 40 MG IV IVPush SCH (08:00)
[2020-11-27] MEDS: TOLTERODINE LA 4MG CAP.ER.24H PO SCH (08:21)
[2020-11-27] MEDS: MULTIVITAMIN 1 TABLET PO SCH (08:22)
[2020-11-27] MEDS: DULOXETINE 30 MG CAPSULE.DR PO SCH (08:22)
[2020-11-27] MEDS: SPIRONOLACTONE 25 MG TABLET PO SCH (08:22)
[2020-11-27] MEDS: PYRIDOXINE (VITAMIN B6) 100 MG TAB PO SCH (08:22)
[2020-11-27] MEDS: VERAPAMIL 180 MG CAP. ER PO SCH (08:22)
[2020-11-27] MEDS: LOSARTAN 50MG TABLET PO SCH (08:22)
[2020-11-27] MEDS: DIAZEPAM 5 MG/ML, 2ML IVPush SCH (08:23)
[2020-11-27] MEDS: ZEAXANTHIN PO SCH (08:38)
[2020-11-27] MEDS: LUTEIN PO SCH (08:38)
[2020-11-27] MEDS: SENNA/DOCUSATE TABLET PO SCH (08:38)
[2020-11-27 12:13] VITALS: BP 134/73
== END 2020-11-27 15:48 | disposition home health service (06) | DRG 378 ==
LOC: ED 13:33 → EDIP 14:56 → 4EST 15:29 → DCLOUNGE 11-27 15:38
PROVIDERS: ADMIT Family Medicine; ATTEND Family Medicine
PROC: 30233N1 Transfusion of Nonautologous Red Blood Cells into Peripheral Vein, Percutaneous Approach (ICD-10-PCS; principal; 2020-11-25)
DX: K92.1 Melena (principal); D62 Acute posthemorrhagic anemia; I42.2 Other hypertrophic cardiomyopathy; I48.20 Chronic atrial fibrillation, unspecified; I42.1 Obstructive hypertrophic cardiomyopathy; E03.9 Hypothyroidism, unspecified; E78.5 Hyperlipidemia, unspecified; I10 Essential (primary) hypertension; I25.2 Old myocardial infarction; Z85.3 Personal history of malignant neoplasm of breast; Z85.43 Personal history of malignant neoplasm of ovary; Z87.891 Personal history of nicotine dependence; Z90.710 Acquired absence of both cervix and uterus; Z80.42 Family history of malignant neoplasm of prostate; Z82.3 Family history of stroke; Z88.6 Allergy status to analgesic agent; Z88.5 Allergy status to narcotic agent; Z88.8 Allergy status to other drugs, medicaments and biological substances; Z91.048 Other nonmedicinal substance allergy status
CPT/HCPCS: 36415; 80048; 80053; 83735; 85014; 85018; 85025; 85610; 85730; 86850; 86900; 86923; G0378; J0696; J3360; C9113; J7030; J7120; P9016

== ENCOUNTER 2021-01-14 14:21 | Emergency (ER) | payer MEDICARE ==
[~2021-01-14] VITALS: Ht 152.4 cm; Wt 78.0 kg
[~2021-01-14 14:21] MED LIST changes: +CARV3.1212 PO; +HYDR-3241 PO; +OCTR100V SQ; +VERA180C4 PO
--- NOTE | 2021-01-14 14:21 | NUR ---
Pt ambulatory from EMS gurney to ER bed and placed on full bedside monitor. analytical technician at bedside to assist with placing pt in gown and VS assessed. clinical assessment manager completed.
--- NOTE | 2021-01-14 14:35 | NUR ---
at bedside for exam.
[2021-01-14] MEDS ORDERED: SODIUM CHLORIDE FLUSH 10ML SYR IVF ONE (15:00)
--- NOTE | 2021-01-14 15:03 | NUR ---
IV started with aseptic technique. Offered to draw all but T/C with IV start, but pt declined. Report given to OShaunessy and care transferred.
[2021-01-14 15:35] LABS: MEAN CORPUSCULAR HEMOGLOBIN 29.9 pg (27.0-34.8); MEAN CORPUSCULAR HGB CONC 32.1 g/dL (32.4-35.8); MEAN PLATELET VOLUME 10.1 fL (7.4-10.4); PLATELET COUNT 338 x10^3/uL (130-400); RED CELL DISTRIBUTION WIDTH 16.2 % (9.6-15.2)
[2021-01-14 15:44] LABS: ALBUMIN 3.3 g/dL (3.4-5.0); ANION GAP 8 mmol/L (5-15); CALCIUM 8.4 mg/dL (8.5-10.1); CHLORIDE 108 mmol/L (98-107); INTERNATIONAL NORMALIZED RATIO 1.04 (0.93-1.1); PROTHROMBIN TIME 11.1 Seconds (9.6-11.5)
[2021-01-14 15:48] LABS: ALANINE AMINOTRANSFERASE 30 U/L (12-78); ALKALINE PHOSPHATASE 66 U/L (45-117); BILIRUBIN,TOTAL 0.2 mg/dL (0.2-1.0); TOTAL PROTEIN 6.1 g/dL (6.4-8.2)
[2021-01-14 15:57] LABS: MD YES
[2021-01-14 15:59] LABS: BAND#(MANUAL) 0.36 x10^3/uL; BANDS%(MANUAL) 2 % (0-7); BASOS#(MANUAL) 0.18 x10^3/uL (0-0.1); BASOS% (MANUAL) 1 % (0-1); LYMPH#(MANUAL) 0.55 x10^3/uL (1-3.4); LYMPHS% (MANUAL) 3 % (22-44); MONOS#(MANUAL) 0.55 x10^3/uL (0.3-2.7); MONOS% (MANUAL) 3 % (2-9); MYELOCYTES# (MANUAL) 0.36 x10^3/uL (0-0); MYELOCYTES% (MANUAL) 2 % (0-0); SEGS% (MANUAL) 89 % (42-75)
[2021-01-14 16:00] LABS: ANISOCYTOSIS 1+; HYPOCHROMIA 1+; POLYCHROMASIA 1+
[2021-01-14 16:01] LABS: <PLATELET ESTIMATE> ADEQUATE; <PLT MORPHOLOGY> NORMAL PLT MORPH
[2021-01-14 17:22] VITALS: BP 101/31
[2021-01-14 17:30] VITALS: BP 110/42
[2021-01-14 18:30] VITALS: BP 128/53
--- NOTE | 2021-01-14 18:55 | NUR ---
Report received from FARIDA Hdez. This RN to assume care.
--- NOTE | 2021-01-14 19:03 | NUR ---
Blood completed and line flushed. Assisted patient to bedside commode.
--- NOTE | 2021-01-14 19:30 | NUR ---
Discharge instructions given. All questions and concerns addressed. Patient ambulatory with a steady gait. Belongings with patient.
[2021-01-15] MEDS ORDERED: LOSA50TA14 PO (05:24)
[2021-01-15] MEDS ORDERED: ROSU40TA PO (05:24)
[2021-01-15] MEDS ORDERED: ALBU8.5H8 PO (05:24)
[2021-01-15] MEDS ORDERED: OMEP-110 PO (05:24)
[2021-01-15] MEDS ORDERED: DULO30CA2 PO (05:24)
[2021-01-15] MEDS ORDERED: LEVO75TA5 PO (05:24)
[2021-01-15] MEDS ORDERED: TOLT4CAP12 PO (05:24)
[2021-01-15] MEDS ORDERED: SPIR25TA5 PO (05:24)
[2021-01-15] MEDS ORDERED: DIAZ2TAB PO (05:24)
[2021-01-15] MEDS ORDERED: HYDR28OI3 EXT (05:24)
[2021-01-15] MEDS ORDERED: TRAN650T3 PO (05:24)
[2021-01-15] MEDS ORDERED: VERA100C4 PO (05:24)
[2021-01-15] MEDS ORDERED: TRIA10.8 NAS (05:24)
== END 2021-01-14 19:45 | disposition home or self-care (01) ==
LOC: ED 16:04
DX: D50.0 Iron deficiency anemia secondary to blood loss (chronic) (principal); D72.829 Elevated white blood cell count, unspecified; K92.1 Melena; I10 Essential (primary) hypertension; Z90.710 Acquired absence of both cervix and uterus
CPT/HCPCS: 36415; 80053; 85025; 85610; 85730; 86850; 86900; 86923; 99285; P9016

== ENCOUNTER 2021-01-15 02:55 | Inpatient (IN) | payer MEDICARE ==
[~2021-01-15] VITALS: Ht 149.9 cm; Wt 83.1 kg
--- NOTE | 2021-01-15 03:07 | NUR ---
THIS IS A 75F BIB EMS FROM HOME FOLLOWING A GLF, PT REPORTS MULTIPLE EPISODES OF VOMITING. PT HAS HX OF CHRONIC GIB, WAS SEEN HERE TODAY GIVEN 1UNIT PRBCS AND DC HOME. PT CONNECTED TO ALL MONITORING, VSS, AT BEDSIDE FOR SUPPORT
--- NOTE | 2021-01-15 03:14 | NUR ---
PT TO CT
[2021-01-15] MEDS ORDERED: ONDANSETRON 2MG/ML, 2ML ONE (03:16)
[2021-01-15] MEDS ORDERED: PANTOPRAZOLE 40 MG IV ONE (03:16)
[2021-01-15] MEDS ORDERED: PANTOPRAZOLE 40 MG IV IVPush ONE (03:30)
[2021-01-15] MEDS ORDERED: SODIUM CHLORIDE FLUSH 10ML SYR IVF ONE (03:30)
[2021-01-15] MEDS ORDERED: ONDANSETRON 2MG/ML, 2ML IVPush ONE (03:30)
[2021-01-15] MEDS ORDERED: SODIUM CHLORIDE 0.9% 1,000ML IVBOLUS ONE (03:30)
[2021-01-15 03:43] LABS: BASOPHILS % (AUTO) 0 % (0-1); EOSINOPHILS % (AUTO) 0 % (1-7); LYMPHOCYTES % (AUTO) 5 % (22-44); MEAN CORPUSCULAR HEMOGLOBIN 30.6 pg (27.0-34.8); MEAN CORPUSCULAR HGB CONC 32.9 g/dL (32.4-35.8); MEAN PLATELET VOLUME 10.4 fL (7.4-10.4); MONOCYTES % (AUTO) 5 % (2-9); NEUTROPHILS % (AUTO) 90 % (42-75); PLATELET COUNT 289 x10^3/uL (130-400); RED BLOOD COUNT 2.95 x10^6/uL (3.82-5.3); RED CELL DISTRIBUTION WIDTH 15.2 % (9.6-15.2)
[2021-01-15 03:56] LABS: ALANINE AMINOTRANSFERASE 29 U/L (12-78); ALBUMIN 3.2 g/dL (3.4-5.0); ANION GAP 9 mmol/L (5-15); CALCIUM 7.8 mg/dL (8.5-10.1); CHLORIDE 107 mmol/L (98-107); CREATININE 1.34 mg/dL (0.55-1.02)
[2021-01-15 03:59] LABS: ALKALINE PHOSPHATASE 63 U/L (45-117); BILIRUBIN,TOTAL 0.4 mg/dL (0.2-1.0); INTERNATIONAL NORMALIZED RATIO 1.03 (0.93-1.1); TOTAL PROTEIN 6.1 g/dL (6.4-8.2)
[2021-01-15 04:05] LABS: TROPONIN I 0.033 ng/mL (0.000-0.045)
[2021-01-15 04:17] LABS: MD SCAN
--- NOTE | 2021-01-15 04:28 | NUR ---
STRAIGHT CATH PERFORMED, URINE WALKED TO LAB AT THIS TIME
[2021-01-15 04:35] LABS: MICROSCOPIC AUTO
[2021-01-15] MEDS ORDERED: CEFTRIAXONE 1,000 MG in DEXTROSE 5% 50 ML IVPB ONE (05:00)
[2021-01-15] MEDS ORDERED: PANTOPRAZOLE 80 MG in SODIUM CHLORIDE 0.9% 100 ML IV SCH (05:00)
--- NOTE | 2021-01-15 05:10 | NUR ---
ABX STARTED AT THIS TIME, CULTURES DRAWN X2 PRIOR TO START
--- NOTE | 2021-01-15 05:10 | NUR ---
DR. VIVEROS AT BEDSIDE FOR ADMIT
[2021-01-15] MEDS ORDERED: TRIA10.8 NAS (05:24)
[2021-01-15] MEDS ORDERED: LOSA50TA14 PO (05:24)
[2021-01-15] MEDS ORDERED: HYDR28OI3 EXT (05:24)
[2021-01-15] MEDS ORDERED: LEVO75TA5 PO (05:24)
[2021-01-15] MEDS ORDERED: TOLT4CAP12 PO (05:24)
[2021-01-15] MEDS ORDERED: DULO30CA2 PO (05:24)
[2021-01-15] MEDS ORDERED: DIAZ2TAB PO (05:24)
[2021-01-15] MEDS ORDERED: ROSU40TA PO (05:24)
[2021-01-15] MEDS ORDERED: ALBU8.5H8 PO (05:24)
[2021-01-15] MEDS ORDERED: SPIR25TA5 PO (05:24)
[2021-01-15] MEDS ORDERED: VERA100C4 PO (05:24)
[2021-01-15] MEDS ORDERED: OMEP-110 PO (05:24)
[2021-01-15] MEDS ORDERED: TRAN650T3 PO (05:24)
[2021-01-15] MEDS ORDERED: HYDROmorphone 2 MG/ML, 1ML IVPush PRN (05:30)
[2021-01-15] MEDS ORDERED: PROMETHAZINE 25 MG/ML, 1ML IM PRN (05:30)
[2021-01-15] MEDS ORDERED: LABETALOL 5MG/ML, 20ML IVPush PRN (05:30)
--- NOTE | 2021-01-15 05:30 | NUR ---
REPORT TO PORSCHE IQBAL PT TO BE TRANSFERRED TO 483
[2021-01-15 06:20] VITALS: BP 149/79
[2021-01-15] MEDS ORDERED: PHARMACOKINETIC CONSULTATION MC ONE (06:30)
[2021-01-15] MEDS ORDERED: PHARMACY MAY ADJ FOR RENAL FX MC PRN (06:30)
[2021-01-15] MEDS ORDERED: PHARMACOKINETIC MONITORING MC PRN (06:30)
[2021-01-15] MEDS ORDERED: VANCOMYCIN PER PHARMACY MC PRN (06:30)
[2021-01-15] MEDS ORDERED: VANCOMYCIN 1,600 MG in SODIUM CHLORIDE 0.9% 250 ML IV ONE (06:30)
[2021-01-15] MEDS: ONDANSETRON 2MG/ML, 2ML IVPush PRN ×2 (06:37→23:13)
[2021-01-15] MEDS: OCTREOTIDE 50 MCG/ML, 1ML (0.05MG/ML) SQ SCH ×3 (07:25→21:08)
[2021-01-15] MEDS: SENNA/DOCUSATE TABLET PO SCH (07:45)
[2021-01-15] MEDS ORDERED: SPIRONOLACTONE 25 MG TABLET PO SCH (09:00)
[2021-01-15] MEDS ORDERED: VERAPAMIL 180 MG CAP. ER PO SCH (09:00)
[2021-01-15] MEDS ORDERED: TOLTERODINE LA 4MG CAP.ER.24H PO SCH (09:00)
[2021-01-15] MEDS: DIAZEPAM 2 MG TABLET PO SCH ×2 (09:00→20:47)
[2021-01-15] MEDS: PIPERACILLIN/TAZO 3.375 GM in DEXTROSE 5% 50 ML IV SCH ×2 (09:59→16:33)
[2021-01-15] MEDS: DULOXETINE 30 MG CAPSULE.DR PO SCH (10:03)
[2021-01-15] MEDS: LEVOTHYROXINE 75 MCG TABLET PO SCH (10:04)
[2021-01-15] MEDS: OMEPRAZOLE 20 MG CAPSULE.DR PO SCH ×2 (10:04→16:32)
[2021-01-15] MEDS: LOSARTAN 50MG TABLET PO SCH ×2 (10:04→20:47)
[2021-01-15] MEDS: LACTATED RINGERS 1,000 ML IV SCH (11:42)
[2021-01-15 12:31] LABS: CHLORIDE,URINE RANDOM 51 mmol/L; POTASSIUM,URINE RANDOM 49 mmol/L; SODIUM,URINE RANDOM 45 mmol/L
[2021-01-15 13:05] VITALS: BP 162/72
[2021-01-15] MEDS: ACETAMINOPHEN 325 MG TABLET PO PRN ×2 (13:16→21:14)
[2021-01-15 20:23] VITALS: BP 97/54
[2021-01-15] MEDS ORDERED: ATORVASTATIN 80 MG TABLET PO SCH (21:00)
[2021-01-15] MEDS: PIPERACILLIN/TAZO 2.25 GM in DEXTROSE 5% 50 ML IV SCH (21:15)
[2021-01-15] MEDS ORDERED: PIPERACILLIN/TAZO 3.375 GM in DEXTROSE 5% 50 ML IV SCH (22:00)
[2021-01-16] VITALS (12 sets, daily range): BP systolic 55–104; BP diastolic 20–64
[2021-01-16] MEDS ORDERED: HYDROmorphone 1 MG/ML, 1ML INJ IV ONE
[2021-01-16] MEDS: LACTATED RINGERS 1,000 ML IV SCH (00:08)
[2021-01-16] MEDS ORDERED: SODIUM CHLORIDE 0.9% 1,000ML IVBOLUS ONE (03:00)
[2021-01-16 03:09] LABS: MEAN CORPUSCULAR HEMOGLOBIN 30.1 pg (27.0-34.8); MEAN CORPUSCULAR HGB CONC 30.4 g/dL (32.4-35.8); MEAN PLATELET VOLUME 10.9 fL (7.4-10.4); PLATELET COUNT 193 x10^3/uL (130-400); RED BLOOD COUNT 2.31 x10^6/uL (3.82-5.3); RED CELL DISTRIBUTION WIDTH 16.6 % (9.6-15.2)
[2021-01-16 03:20] LABS: ALBUMIN 2.7 g/dL (3.4-5.0); ANION GAP 17 mmol/L (5-15); CALCIUM 7.5 mg/dL (8.5-10.1); CHLORIDE 109 mmol/L (98-107); CREATININE 2.47 mg/dL (0.55-1.02)
[2021-01-16 03:22] LABS: ALKALINE PHOSPHATASE 92 U/L (45-117); BILIRUBIN,TOTAL 0.5 mg/dL (0.2-1.0)
[2021-01-16 03:48] LABS: ALANINE AMINOTRANSFERASE 1704 U/L (12-78)
[2021-01-16 03:55] LABS: MD YES
[2021-01-16 03:58] LABS: BAND#(MANUAL) 8.96 x10^3/uL; BANDS%(MANUAL) 18 % (0-7); LYMPH#(MANUAL) 1.49 x10^3/uL (1-3.4); LYMPHS% (MANUAL) 3 % (22-44); MONOS#(MANUAL) 2.49 x10^3/uL (0.3-2.7); MONOS% (MANUAL) 5 % (2-9); SEGS% (MANUAL) 74 % (42-75)
[2021-01-16 03:59] LABS: ANISOCYTOSIS 1+; CRENATED 1+; HYPOCHROMIA 1+; OVALOCYTES 1+; POLYCHROMASIA 1+
[2021-01-16 04:00] LABS: <PLATELET ESTIMATE> ADEQUATE
[2021-01-16] MEDS ORDERED: CALCIUM GLUCONATE 4.6 MEQ/10 ML IVPush ONE (04:00)
[2021-01-16] MEDS ORDERED: SODIUM ZIRCONIUM CYCLOSILICATE 5 GM PO ONE (04:00)
[2021-01-16] MEDS ORDERED: LACTATED RINGERS 1,000 ML IVBOLUS ONE ×2 (04:00→08:00)
[2021-01-16] MEDS ORDERED: LINEZOLID PMX 600MG/300ML 300 ML IV SCH (04:00)
[2021-01-16 04:01] LABS: LARGE PLATELETS 1+
[2021-01-16] MEDS: PIPERACILLIN/TAZO 2.25 GM in DEXTROSE 5% 50 ML IV SCH ×3 (04:55→16:10)
[2021-01-16] MEDS: SODIUM BICARBONATE 8.4% 150 MEQ in DEXTROSE 5% 1,000 ML IV SCH ×2 (04:56→16:09)
[2021-01-16] MEDS ORDERED: PANTOPRAZOLE 40 MG IV IVPush SCH (08:00)
[2021-01-16] MEDS ORDERED: NOREPINEPHRINE 8 MG in SODIUM CHLORIDE 0.9% 242 ML IV PRN (08:00)
[2021-01-16] MEDS ORDERED: SODIUM BICARBONATE 1 MEQ/ML, 50ML VIAL IVPush ONE (08:00)
[2021-01-16] MEDS ORDERED: INSULIN REGULAR 100 UNITS/ML, 3ML VIAL IVPush ONE (09:30)
[2021-01-16] MEDS ORDERED: DEXTROSE 50%, 50ML SYRINGE IVPush ONE (09:30)
[2021-01-16] MEDS: DULOXETINE 30 MG CAPSULE.DR PO SCH (10:52)
[2021-01-16] MEDS: SENNA/DOCUSATE TABLET PO SCH (10:52)
[2021-01-16] MEDS: LEVOTHYROXINE 75 MCG TABLET PO SCH (10:52)
[2021-01-16] MEDS: OCTREOTIDE 50 MCG/ML, 1ML (0.05MG/ML) SQ SCH ×2 (11:29→11:57)
[2021-01-16 11:42] LABS: ANION GAP 14 mmol/L (5-15); CALCIUM 6.9 mg/dL (8.5-10.1); CHLORIDE 105 mmol/L (98-107); CREATININE 2.53 mg/dL (0.55-1.02)
[2021-01-16] MEDS ORDERED: VANCOMYCIN 1,600 MG in SODIUM CHLORIDE 0.9% 250 ML IV SCH (14:00)
[2021-01-16] MEDS ORDERED: SODIUM CHLORIDE 0.9% 250 ML IV SCH ×2 (14:00)
[2021-01-16 16:26] LABS: ANION GAP 10 mmol/L (5-15); CALCIUM 6.7 mg/dL (8.5-10.1); CHLORIDE 104 mmol/L (98-107); CREATININE 2.79 mg/dL (0.55-1.02)
[2021-01-16] MEDS ORDERED: ONDANSETRON 2MG/ML, 2ML IVPush PRN (17:00)
[2021-01-16] MEDS ORDERED: ATROPINE OPHTH SOLN 1%, 5ML PO PRN (17:00)
[2021-01-16] MEDS ORDERED: HYDROmorphone 1 MG/ML, 1ML INJ IV PRN (17:00)
[2021-01-16] MEDS ORDERED: HYDROmorphone/PF 20 MG in SODIUM CHLORIDE 0.9% 98 ML IV PRN ×2 (17:00→17:30)
[2021-01-16] MEDS ORDERED: SODIUM CHLORIDE FLUSH 10ML SYR IVF SCH (21:00)
== END 2021-01-17 00:26 | disposition expired | DRG 682 ==
LOC: ED 03:19 → EDIP 05:05 → 4EST 06:05 → CCU 01-16 06:56
PROVIDERS: ADMIT Family Medicine; ATTEND Internal Medicine
PROC: 0T9B70Z Drainage of Bladder with Drainage Device, Via Natural or Artificial Opening (ICD-10-PCS; principal; 2021-01-15)
PROC: 30233N1 Transfusion of Nonautologous Red Blood Cells into Peripheral Vein, Percutaneous Approach (ICD-10-PCS; 2021-01-16)
PROC: 02HV33Z Insertion of Infusion Device into Superior Vena Cava, Percutaneous Approach (ICD-10-PCS; 2021-01-16)
PROC: B548ZZA Ultrasonography of Superior Vena Cava, Guidance (ICD-10-PCS; 2021-01-16)
DX: N17.0 Acute kidney failure with tubular necrosis (principal); G93.41 Metabolic encephalopathy; K72.00 Acute and subacute hepatic failure without coma; K55.21 Angiodysplasia of colon with hemorrhage; R65.10 Systemic inflammatory response syndrome (SIRS) of non-infectious origin without acute organ dysfunction; D62 Acute posthemorrhagic anemia; D68.69 Other thrombophilia; I13.0 Hypertensive heart and chronic kidney disease with heart failure and stage 1 through stage 4 chronic kidney disease, or unspecified chronic kidney disease; I50.32 Chronic diastolic (congestive) heart failure; I48.20 Chronic atrial fibrillation, unspecified; D68.1 Hereditary factor XI deficiency; E87.2 Acidosis; I42.1 Obstructive hypertrophic cardiomyopathy; I42.2 Other hypertrophic cardiomyopathy; R09.02 Hypoxemia; Z66 Do not resuscitate; Z80.2 Family history of malignant neoplasm of other respiratory and intrathoracic organs; Z80.3 Family history of malignant neoplasm of breast; Z80.42 Family history of malignant neoplasm of prostate; Z82.3 Family history of stroke; Z82.49 Family history of ischemic heart disease and other diseases of the circulatory system; Z88.5 Allergy status to narcotic agent; Z88.8 Allergy status to other drugs, medicaments and biological substances; Z91.041 Radiographic dye allergy status; Z85.3 Personal history of malignant neoplasm of breast; Z51.5 Encounter for palliative care; Z85.43 Personal history of malignant neoplasm of ovary; Z90.711 Acquired absence of uterus with remaining cervical stump; R32 Unspecified urinary incontinence; N18.2 Chronic kidney disease, stage 2 (mild); K59.00 Constipation, unspecified; D72.829 Elevated white blood cell count, unspecified; E03.9 Hypothyroidism, unspecified; E27.8 Other specified disorders of adrenal gland; E66.9 Obesity, unspecified; Z68.37 Body mass index [BMI] 37.0-37.9, adult; E83.39 Other disorders of phosphorus metabolism; E87.5 Hyperkalemia; E88.09 Other disorders of plasma-protein metabolism, not elsewhere classified; F41.9 Anxiety disorder, unspecified; I25.2 Old myocardial infarction; J45.909 Unspecified asthma, uncomplicated; W18.11XA Fall from or off toilet without subsequent striking against object, initial encounter; Y93.89 Activity, other specified; Y92.89 Other specified places as the place of occurrence of the external cause; Y99.8 Other external cause status; R73.9 Hyperglycemia, unspecified; N10 Acute pyelonephritis
CPT/HCPCS: 36415; 36573; 71045; 74176; 76770; 80048; 80053; 81001; 82436; 82533; 82570; 83605; 83690; 83735; 84100; 84133; 84145; 84300; 84443; 84484; 85014; 85018; 85025; 85610; 85730; 86850; 86900; 86923; 87040; 93005; 96361; 96374; 96375; C8929; G0378; J0696; J1170; J1815; J2020; J2354; J2405; J2543; J3370; J7070; Q9957; C1751; C9113; J0610; J7030; J7050; J7120; P9016